=== PATIENT | female | born 1950 | race Caucasian/White ===

== ENCOUNTER → 2019-06-15 12:38 | Outpatient (CLI) | payer MEDICARE, SELFPAY ==
--- NOTE | ~2019-06-15 | XR_ITS ---
EXAMINATION: XR elbow LT min 3V DATE: 06/15/2019 12:55 INDICATION: Left elbow pain and posterior swelling post fall 5 weeks prior TECHNIQUE: Anteroposterior, two oblique and lateral views of the left elbow were obtained. COMPARISON: None. FINDINGS: Alignment is normal. No fracture or joint effusion. Mild osteoarthritis at the left elbow with minima l nonuniform joint space narrowing at the posterior ulnotrochlear articulation, tiny marginal osteoph ytes and a likely tiny loose body at the junction of the 3 compartments of the joint space. No cortic al erosions or periosteal reaction. Prominent soft tissue swelling posterior to the olecranon which c ould represent hematoma or bursitis. IMPRESSION: 1. Prominent soft tissue swelling posterior to the olecranon which could represent hematoma or bursit is. 2. Mild osteoarthritis at the left elbow with no acute osseous abnormality. Reviewed, dictated and finalized at location A. FLOOR SUPERVISOR IMPRESSION: 1. Prominent soft tissue swelling posterior to the olecranon which could repres ent hematoma or bursitis. 2. Mild osteoarthritis at the left elbow with no acute osseous abnormality.
== END ==
PROVIDERS: Visit Provider Physician Assistant Medical
DX: M19.022 Primary osteoarthritis, left elbow (principal)
CPT/HCPCS: 73080

== ENCOUNTER → 2020-03-27 07:42 | Outpatient (CLI) | payer MEDICARE, SELFPAY ==
--- NOTE | ~2020-03-27 | MR_ITS ---
EXAMINATION: MR lumbar spine wo con DATE: 03/27/2020 08:52 INDICATION: Lumbar radiculopathy. TECHNIQUE: Magnetic resonance imaging (MRI) of the lumbar spine was performed without intravenous con trast. Sequences included sagittal T2-weighted FSE, sagittal T2-weighted FS FSE, sagittal T1-weighted FSE, and axial T2-weighted FSE. COMPARISON: Lumbar spine MRI 04/19/2019 FINDINGS: There is 8 degrees levocurvature of lumbar spine. Vertebral body heights are normal. There is moderately decreased disc height at T11-T12 and severely decreased disc height at L2-L3. The dista l spinal cord signal intensity is normal. The conus medullaris is at L1. The bladder is markedly dist ended. The following disc levels are specifically discussed: T11-T12: The disc is bulging. There is moderate right and severe left facet joint osteoarthritis. The re is mild left neural foraminal stenosis. There is mild central canal stenosis. T12-L1: The disc is mildly bulging. There is mild right facet joint osteoarthritis. There is no neura l foraminal stenosis. There is no central canal stenosis. L1-L2: The disc is bulging. There is mild bilateral facet joint osteoarthritis. There is mild left ne ural foraminal stenosis. There is mild central canal stenosis. L2-L3: The disc is bulging and has an annular fissure. There is mild bilateral facet joint osteoarthr itis. There is moderate right and mild left neural foraminal stenosis. There is mild central canal st enosis. L3-L4: The disc is bulging. There is mild bilateral facet joint osteoarthritis. There is mild bilater al neural foraminal stenosis. There is no central canal stenosis. L4-L5: The disc is mildly bulging. There is mild bilateral facet joint osteoarthritis. There is mild bilateral neural foraminal stenosis. There is no central canal stenosis. L5-S1: The disc is bulging. There is moderate bilateral facet joint osteoarthritis. There is mild herson ateral neural foraminal stenosis. There is mild central canal stenosis. IMPRESSION: 1. Severe lumbar spondylosis, stable from 04/19/2019. Reviewed, dictated and finalized at location A. TENDER
--- NOTE | ~2020-03-27 | MR_ITS ---
EXAMINATION: MR thoracic spine wo con EXAM DATE: 03/27/2020 08:48 INDICATION: Pain in thoracic spine pain in thoracic spine. TECHNIQUE: Multi-sequential, multiplanar MR images of the thoracic spine were obtained without contra st. Sagittal T1, T2, T2 fat saturation, axial T2 weighted images reviewed. Comparison is made to adriana or examination from 07/28/2018. FINDINGS: C4-6 cervical fusion hardware. There is some motion on the examination causing limitations. There is punctate signal cord abnormality at the T3 level in the left side of the spinal cord identi fied only on the axial sequence, likely small focus of myelomalacia. The vertebral bodies are aligned in the AP dimension. There is mild mid and lower thoracic disc disease. No central canal or signific ant neural foraminal stenosis of the thoracic spine. Mild diffuse thoracic facet arthropathy. Parasp inal soft tissue is unremarkable. There are no suspicious marrow signal abnormalities. IMPRESSION: 1. Mild thoracic spondylosis. 2. Punctate focus of upper thoracic cord signal abnormality likely chronic myelomalacia. Reviewed, dictated and finalized at location B. PENDENT SALES REPRESENTATIVE IMPRESSION: 1. Mild thoracic spondylosis. 2. Punctate focus of upper thoracic cord signal abnormality likely chronic mye lomalacia.
== END ==
PROVIDERS: PCP Family Medicine; Visit Provider Nurse Practitioner Adult Health
DX: M54.16 Radiculopathy, lumbar region (principal); Z98.1 Arthrodesis status; M47.814 Spondylosis without myelopathy or radiculopathy, thoracic region
CPT/HCPCS: 72146; 72148

== ENCOUNTER 2020-06-30 09:27 | Outpatient (CLI) | payer MEDICARE, SELFPAY ==
--- NOTE | ~2020-06-30 | MM_ITS ---
EXAMINATION: MM screening [facility] BI w ritu HISTORY: Screening mammogram TECHNIQUE: Craniocaudal and mediolateral oblique 3-D tomosynthesis images were obtained and synthetic 2-D images were generated. CAD analysis was submitted and interpreted. COMPARISON: 04/05/2019, 02/11/2019, 06/03/2014 BREAST PARENCHYMAL COMPOSITION: The breasts are heterogeneously dense, which may obscure small masses . FINDINGS: There is no evidence of suspicious mass, calcification, or architectural distortion to sugg est malignancy in either breast. There has been no suspicious interval change. IMPRESSION: 1. No mammographic evidence of malignancy. 2. Recommend routine screening mammography in one year. BI-RADS Category 1: Negative Reviewed, dictated and finalized at location A. WORKING BELT SANDER
== END 2020-06-30 09:28 | disposition home or self-care (01) ==
LOC: ANHIMG 09:33
PROVIDERS: PCP Family Medicine; Visit Provider Family Medicine
DX: Z12.31 Encounter for screening mammogram for malignant neoplasm of breast (principal)
CPT/HCPCS: 77063; 77067

== ENCOUNTER 2020-07-31 19:00 | Emergency (ER) | payer MEDICARE, SELFPAY ==
[2020-07-31 19:33] VITALS: BP 139/66; PULSE 86; RESP 16; TEMP 37.5; O2SAT 97
[2020-07-31] MEDS: diazePAM INJ (*CRX) 10 MG/2 ML SYRINGE 5 MG IV PUSH (20:11)
[2020-07-31 20:15] LABS: Basophils Percent Auto 0.1 % (0.2-1.2); Hematocrit 39.8 % (37.0-47.0); Immature Granulocyte Absolute 0.18 K/mm3 (0.00-0.031); Immature Granulocyte Percent A 0.8 % (0-0.5); Lymphocytes Absolute Auto 1.16 K/mm3 (0.9-3.2); Lymphocytes Percent Auto 5.2 % (18.3-44.2); Mean Corpuscular HGB Conc 35.2 g/dl (32-36); Mean Corpuscular Hemoglobin 31.6 pg (26-34); Mean Corpuscular Volume 89.8 fl (80-100); Mean Platelet Volume 8.5 fl (7.4-10.4); Monocytes Absolute Auto 1.6 K/mm3 (0.1-0.6); Monocytes Percent Auto 7.4 % (2.6-8.5); Neutrophils Absolute Auto 19.3 K/mm3 (1.3-6.7); Neutrophils Percent Auto 86.5 % (45.5-73.1); Platelet Count Result 286 k/mm3 (150-375); Red Blood Count 4.43 M/mm3 (4.2-5.4); Red Cell Distribution Width 11.5 % (11.5-14.5); White Blood Count 22.3 K/mm3 (4.5-10.0)
--- NOTE | 2020-07-31 20:29 | ED.GENADULT ---
HPI - General Adult General Chief complaint: Back Pain/Injury Stated complaint: BACK PAIN Time Seen by Provider: 07/31/20 19:41 History of Present Illness HPI narrative: Patient is a 70-year-old female who presents to the ER with complications related to a spinal cord stimulator that was placed. Patient has chronic lower back pain that she reports seems to be relieved by this new stimulator that was placed on 07/26/[address] Mir a paint specialist at [facility]. Patient awoke early this morning reports her left leg became stiff and it caused her to fall and then she urinated on herself. She is unsure if she is able to sense whether she could urinate or not. She reports throughout the day she has been able to sense when her bladder is full and has been able to urinate on command. She reports she has no lower extremity numbness or tingling and has no saddle anesthesia. Patient reports since the leads were placed she has been having left paraspinal muscle pain that the eligibility services representative who helped with the procedure felt was likely due to to the procedure. Patient has been taking ibuprofen but pain has persisted. She is also started having some pain in her neck and has been having headache. She is unsure if this is related to stress. Patient reports she felt warm this morning but has had no formal documentation of fever. She has had no shaking chills. Her temperature was slightly elevated upon arrival here. Patient denies any paralysis of the lower extremities and only that she will have moments where her back tightens up her leg becomes stiff. She has had 3 additional episodes where her leg becomes stiff and she lies against a wall and slowly brings her self down to the ground. She has not suffered any physical injury from a fall. Stimulator leads were placed at T12/L1 and the lead were directed cephalad. Related Data Home Medications Medication Instructions Recorded Confirmed tramadol 50 mg tablet 25 mg PO DAILY PRN tablet 01/06/20 07/20/20 Allergies Allergy/AdvReac Type Severity Reaction Status Date / Time No Known Allergies Allergy Verified 01/06/20 10:25 hydrochlorothiazide AdvReac Unknown hyponatremi Verified 01/06/20 10:25 a Review of Systems Review of Systems: All systems reviewed & are unremarkable except as noted in HPI and below Constitutional: Constitutional: Denies chills, Denies fever(s) and Denies weakness Gastrointestinal: Gastrointestinal: Denies abdominal pain, Denies nausea and Denies vomiting Genitourinary: Genitourinary: Denies nocturia, Denies dysuria and Reports urinary incontinence (stress?) Musculoskeletal: Musculoskeletal: Reports back pain and Reports muscle cramps Neurologic: Denies syncope, Reports headache(s), Denies focal weakness and Denies numbness PMFSH Past Medical History Medical History Asthma, mild persistent Benign neoplasm of colon, unspecified Essential (primary) hypertension Foot drop, right 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 Mild persistent asthma, uncomplicated Mixed hyperlipidemia Sciatica associated with disorder of lumbar spine Surgical History Surgical History History of breast biopsy left, benign History of hysterectomy History of lumbar discectomy L2-L3 Family History Family History Sibling Family history of primary malignant neoplasm of liver, Onset Age: 68 Depression Hypertension Patient's sister is in good health Patient's brother is in good health Family history of allergic disorder Family history of liver disease Family history of irritable bowel syndrome Family history of glaucoma Carcinoma of colon Mother Depression Hypertension Family history of coronary artery disease Family history of hearing loss Congestive heart failur
[2020-07-31 20:31] LABS: Potassium 4.4 mmol/L (3.4-5.0)
[2020-07-31 20:38] LABS: Anion Gap 5 mmol/L (8-16); Blood Urea Nitrogen 14 mg/dL (7-17); Calcium 9.7 mg/dL (8.4-10.2); Carbon Dioxide 28 mmol/L (22-30); Chloride 95 mmol/L (98-107); Estimated Glomerular Filt Rate > 60; Glucose 136 mg/dL (65-105); Sodium 128 mmol/L (137-145)
[2020-07-31 20:47] LABS: CRP 14.6 mg/dL (<1.0)
[2020-07-31 21:26] VITALS: BP 130/63; PULSE 67; RESP 18; O2SAT 96
[2020-07-31 22:01] LABS: Erythrocyte Sedimentation Rate 15 mm/hr (0-20)
--- NOTE | 2020-07-31 23:08 | PC.NURSE ---
CALLED [facility] TO TRANSPORT TO [facility] ([facility].ETA [id number]
--- NOTE | 2020-07-31 23:15 | PC.NURSE ---
Assumed care of patient following report from Ame LOPEZ---patient resting comfortably-waiting for transport to [place]
[2020-07-31 23:51] VITALS: BP 120/51; PULSE 72; RESP 16; O2SAT 97
== END 2020-07-31 23:59 | disposition short-term general hospital (02) ==
PROVIDERS: Emergency Provider Emergency Medicine; PCP Family Medicine
DX: T85.733A Infection and inflammatory reaction due to implanted electronic neurostimulator of spinal cord, electrode (lead), initial encounter (principal); M54.40 Lumbago with sciatica, unspecified side; G89.29 Other chronic pain; J45.20 Mild intermittent asthma, uncomplicated; I10 Essential (primary) hypertension; E78.2 Mixed hyperlipidemia
CPT/HCPCS: 36415; 80048; 85025; 85652; 86140; 87040; 96365; 96375; 99285; J0131; J3360

== ENCOUNTER 2021-08-07 08:30 | Outpatient (CLI) | payer MEDICARE, SELFPAY ==
--- NOTE | ~2021-08-07 | MM_ITS ---
EXAMINATION: MM screening [facility] BI w ritu HISTORY: Screening TECHNIQUE: Craniocaudal and mediolateral oblique 3-D tomosynthesis images were obtained and synthetic 2-D images were generated. CAD analysis was submitted and interpreted. COMPARISON: Comparison to multiple prior studies sequentially, with oldest reviewed study dated 06/01. BREAST PARENCHYMAL COMPOSITION: The breasts are heterogenously dense, which may obscure small masses FINDINGS: There is no evidence of suspicious mass, calcification, or architectural distortion to sugg est malignancy in either breast. There has been no suspicious interval change. IMPRESSION: 1. No mammographic evidence of malignancy. 2. Recommend routine screening mammography in one year. BI-RADS Category 1: Negative Reviewed, dictated and finalized at location A.
== END 2021-08-07 08:31 | disposition home or self-care (01) ==
LOC: ANHIMG 08:32
DX: Z12.31 Encounter for screening mammogram for malignant neoplasm of breast (principal)
CPT/HCPCS: 77063; 77067